=== PATIENT | female | born 1990 | race Caucasian/White ===

== ENCOUNTER 2018-10-24 21:42 | Inpatient (IN) | payer OTHER ==
[2018-10-24] MEDS ORDERED: ACETAMINOPHEN 325 MG TAB PO (22:30)
[2018-10-24] MEDS ORDERED: ONDANSETRON 4 MG INJ IV (22:30)
[2018-10-24] MEDS: PROMETHAZINE/CODEINE 5ML CUP PO (23:13)
[2018-10-24] MEDS: ENOXAPARIN 80 MG/0.8 ML SYG SC (23:18)
[2018-10-25] MEDS: PROMETHAZINE/CODEINE 5ML CUP PO (05:21)
[2018-10-25] MEDS: PANTOPRAZOLE (EC) 40 MG TAB PO (05:21)
[2018-10-25 06:40] LABS: ADD MAN DIFF? NO
[2018-10-25 06:50] LABS: BASOPHILS % 0.6 % (0.0-2.0); EOSINOPHILS # 0.1 10^3/ul (0.0-0.5); EOSINOPHILS % 1.7 % (0.0-7.0); HEMATOCRIT 40.6 % (37.0-47.0); HEMOGLOBIN 13.5 g/dl (12.0-16.0); LYMPHOCYTES # 3.1 10^3/ul (0.8-2.9); MEAN CORPUSCULAR HEMOGLOBIN 30.9 pg (29.0-33.0); MEAN CORPUSCULAR HGB CONC 33.3 g/dl (32.0-37.0); MEAN CORPUSCULAR VOLUME 92.9 fl (82.0-101.0); MEAN PLATELET VOLUME 8.6 fl (7.4-10.4); MONOCYTE # 0.9 10^3/ul (0.3-0.9); MONOCYTES % 14.8 % (0.0-11.0); NEUTROPHIL # 2.1 10^3/ul (1.6-7.5); NEUTROPHILS % 33.6 % (39.0-77.0); PLATELET COUNT 265 10^3/UL (140-415); RED BLOOD COUNT 4.37 10^6/ul (4.20-5.40); RED CELL DISTRIBUTION WIDTH 12.2 % (11.5-14.5)
[2018-10-25 06:50] LABS: WHITE BLOOD COUNT 6.3 10^3/ul (4.8-10.8)
[2018-10-25 07:09] LABS: PROTIME 18.2 Sec (11.9-14.9); PT RATIO 1.4
[2018-10-25 07:12] LABS: ANION GAP 8 (5-13); BLOOD UREA NITROGEN 12 mg/dl (7-20); CALCIUM 9.1 mg/dl (8.4-10.2); CARBON DIOXIDE 26 mmol/L (21-31); CHLORIDE 105 mmol/L (97-110); CREATININE 0.67 mg/dl (0.44-1.00); Estimated GFR > 60 mL/min (>60); GLUCOSE 89 mg/dl (70-220); POTASSIUM 4.1 mmol/L (3.5-5.1); SODIUM 139 mmol/L (135-144)
[2018-10-25] MEDS: ENOXAPARIN 80 MG/0.8 ML SYG SC ×2 (08:33→20:17)
[2018-10-25] MEDS: WARFARIN 7.5 MG TAB PO (16:24)
[2018-10-26] MEDS: PROMETHAZINE/CODEINE 5ML CUP PO ×3 (01:00→20:14)
[2018-10-26] MEDS: PANTOPRAZOLE (EC) 40 MG TAB PO (01:24)
[2018-10-26 08:51] LABS: INR 2.13; PROTIME 23.9 Sec (11.9-14.9); PT RATIO 1.9
[2018-10-26] MEDS: ENOXAPARIN 80 MG/0.8 ML SYG SC ×2 (09:25→21:22)
[2018-10-27] MEDS: PANTOPRAZOLE (EC) 40 MG TAB PO (05:52)
[2018-10-27] MEDS: PROMETHAZINE/CODEINE 5ML CUP PO (05:54)
[2018-10-27 06:57] LABS: ADD MAN DIFF? NO
[2018-10-27 07:03] LABS: BASOPHILS % 0.3 % (0.0-2.0); EOSINOPHILS # 0.1 10^3/ul (0.0-0.5); EOSINOPHILS % 1.2 % (0.0-7.0); HEMOGLOBIN 13.3 g/dl (12.0-16.0); LYMPHOCYTES # 4.7 10^3/ul (0.8-2.9); LYMPHOCYTES % 52.6 % (15.0-51.0); MEAN CORPUSCULAR HEMOGLOBIN 30.2 pg (29.0-33.0); MEAN CORPUSCULAR HGB CONC 32.4 g/dl (32.0-37.0); MEAN CORPUSCULAR VOLUME 93.2 fl (82.0-101.0); MEAN PLATELET VOLUME 8.7 fl (7.4-10.4); MONOCYTE # 0.7 10^3/ul (0.3-0.9); MONOCYTES % 7.4 % (0.0-11.0); NEUTROPHIL # 3.4 10^3/ul (1.6-7.5); NEUTROPHILS % 38.3 % (39.0-77.0); PLATELET COUNT 273 10^3/UL (140-415); RED CELL DISTRIBUTION WIDTH 12.2 % (11.5-14.5)
[2018-10-27 07:03] LABS: WHITE BLOOD COUNT 8.9 10^3/ul (4.8-10.8)
[2018-10-27 07:25] LABS: ANION GAP 7 (5-13); BLOOD UREA NITROGEN 17 mg/dl (7-20); CALCIUM 9.2 mg/dl (8.4-10.2); CARBON DIOXIDE 26 mmol/L (21-31); CHLORIDE 106 mmol/L (97-110); CREATININE 0.81 mg/dl (0.44-1.00); Estimated GFR > 60 mL/min (>60); GLUCOSE 96 mg/dl (70-220); INR 1.87; POTASSIUM 4.1 mmol/L (3.5-5.1); PROTIME 21.6 Sec (11.9-14.9); PT RATIO 1.7; SODIUM 139 mmol/L (135-144)
[2018-10-27] MEDS: ENOXAPARIN 80 MG/0.8 ML SYG SC ×2 (09:04→21:17)
[2018-10-27] MEDS: WARFARIN 7.5 MG TAB NGT (18:38)
[2018-10-28] MEDS: PANTOPRAZOLE (EC) 40 MG TAB PO (06:24)
[2018-10-28] MEDS: ENOXAPARIN 80 MG/0.8 ML SYG SC ×2 (09:42→20:45)
[2018-10-28 10:04] LABS: PT RATIO 1.6
[2018-10-28 10:05] LABS: PARTIAL THROMBOPLASTIN TIME 44.4 Sec (23.0-35.0)
[2018-10-28] MEDS: WARFARIN 7.5 MG TAB PO (16:35)
[2018-10-28] MEDS ORDERED: WARFARIN 10 MG TAB PO (17:00)
[2018-10-29 06:18] LABS: ADD MAN DIFF? NO
[2018-10-29 06:21] LABS: BASOPHILS % 0.3 % (0.0-2.0); EOSINOPHILS # 0.1 10^3/ul (0.0-0.5); EOSINOPHILS % 0.5 % (0.0-7.0); HEMATOCRIT 40.1 % (37.0-47.0); HEMOGLOBIN 13.3 g/dl (12.0-16.0); LYMPHOCYTES # 4.8 10^3/ul (0.8-2.9); LYMPHOCYTES % 46.2 % (15.0-51.0); MEAN CORPUSCULAR HEMOGLOBIN 30.4 pg (29.0-33.0); MEAN CORPUSCULAR HGB CONC 33.2 g/dl (32.0-37.0); MEAN CORPUSCULAR VOLUME 91.8 fl (82.0-101.0); MEAN PLATELET VOLUME 8.7 fl (7.4-10.4); MONOCYTE # 0.8 10^3/ul (0.3-0.9); MONOCYTES % 7.6 % (0.0-11.0); NEUTROPHIL # 4.7 10^3/ul (1.6-7.5); PLATELET COUNT 278 10^3/UL (140-415); RED BLOOD COUNT 4.37 10^6/ul (4.20-5.40); RED CELL DISTRIBUTION WIDTH 12.2 % (11.5-14.5)
[2018-10-29 06:21] LABS: WHITE BLOOD COUNT 10.4 10^3/ul (4.8-10.8)
[2018-10-29] MEDS: PANTOPRAZOLE (EC) 40 MG TAB PO (06:42)
[2018-10-29 06:55] LABS: PROTIME 27.1 Sec (11.9-14.9); PT RATIO 2.1
[2018-10-29 06:56] LABS: PARTIAL THROMBOPLASTIN TIME 44.2 Sec (23.0-35.0)
[2018-10-29 07:04] LABS: ANION GAP 8 (5-13); BLOOD UREA NITROGEN 15 mg/dl (7-20); CARBON DIOXIDE 25 mmol/L (21-31); CHLORIDE 106 mmol/L (97-110); CREATININE 0.76 mg/dl (0.44-1.00); Estimated GFR > 60 mL/min (>60); GLUCOSE 91 mg/dl (70-220); POTASSIUM 4.2 mmol/L (3.5-5.1); SODIUM 139 mmol/L (135-144)
[2018-10-29] MEDS: ENOXAPARIN 80 MG/0.8 ML SYG SC (09:04)
== END 2018-10-29 12:07 | disposition home or self-care (01) | DRG 176 ==
LOC: TEL 21:42
DX: I26.99 Other pulmonary embolism without acute cor pulmonale (principal); D68.59 Other primary thrombophilia; I27.82 Chronic pulmonary embolism; J06.9 Acute upper respiratory infection, unspecified; E66.3 Overweight; Z68.29 Body mass index [BMI] 29.0-29.9, adult; Z79.01 Long term (current) use of anticoagulants
CPT/HCPCS: 80048; 85025; 85610; 85730

== ENCOUNTER 2018-12-18 18:14 | Emergency (ER) | payer OTHER ==
[2018-12-18 19:06] LABS: ADD MAN DIFF? NO
[2018-12-18 19:10] LABS: WHITE BLOOD COUNT 11.1 10^3/ul (4.8-10.8)
[2018-12-18 19:10] LABS: BASOPHILS % 0.3 % (0.0-2.0); EOSINOPHILS % 0.2 % (0.0-7.0); HEMOGLOBIN 12.5 g/dl (12.0-16.0); LYMPHOCYTES # 2.6 10^3/ul (0.8-2.9); LYMPHOCYTES % 23.8 % (15.0-51.0); MEAN CORPUSCULAR HEMOGLOBIN 30.6 pg (29.0-33.0); MEAN CORPUSCULAR HGB CONC 33.8 g/dl (32.0-37.0); MEAN CORPUSCULAR VOLUME 90.5 fl (82.0-101.0); MEAN PLATELET VOLUME 8.5 fl (7.4-10.4); MONOCYTES % 9.1 % (0.0-11.0); NEUTROPHIL # 7.3 10^3/ul (1.6-7.5); NEUTROPHILS % 66.2 % (39.0-77.0); PLATELET COUNT 297 10^3/UL (140-415); RED BLOOD COUNT 4.09 10^6/ul (4.20-5.40); RED CELL DISTRIBUTION WIDTH 12.6 % (11.5-14.5)
[2018-12-18 19:29] LABS: ANION GAP 9 (5-13); BLOOD UREA NITROGEN 9 mg/dl (7-20); CALCIUM 9.1 mg/dl (8.4-10.2); CARBON DIOXIDE 22 mmol/L (21-31); CHLORIDE 106 mmol/L (97-110); CREATININE 0.65 mg/dl (0.44-1.00); Estimated GFR > 60 mL/min (>60); GLUCOSE 100 mg/dl (70-220); POTASSIUM 3.7 mmol/L (3.5-5.1); SODIUM 137 mmol/L (135-144)
[2018-12-18 19:41] LABS: TROPONIN-I < 0.012 ng/ml (0.000-0.120)
[2018-12-18] MEDS: IOHEXOL 100 ML (20:50)
[2018-12-18] MEDS: ONDANSETRON 4 MG INJ IV (20:50)
[2018-12-18] MEDS: SOD CHLORIDE 0.9% 1,000 ML IV (20:50)
[2018-12-18] MEDS: SOD CHLORIDE 0.9% 100 ML (20:50)
[2018-12-18] MEDS: morphine 2 MG INJ IV (20:51)
== END 2018-12-18 22:14 | disposition home or self-care (01) ==
LOC: E/R 18:14
DX: O26.891 Other specified pregnancy related conditions, first trimester (principal); R07.9 Chest pain, unspecified; Z3A.01 Less than 8 weeks gestation of pregnancy; Z87.891 Personal history of nicotine dependence
CPT/HCPCS: 36415; 71045; 71275; 76801; 76817; 80048; 81025; 84484; 84702; 85025; 93005; 96361; 96374; 96375; 99285-25